=== PATIENT | male | born 1945 | race Caucasian/White ===

== ENCOUNTER 2017-03-18 15:04 | Outpatient (CLI) | payer MEDICARE, BC ==
[2017-03-18] MEDS ORDERED: UNOBMED (15:45)
--- NOTE | 2017-03-18 15:48 | GI Initial Consult Note ---
CarmellaFransisca Mathewsoi N.P. 03/18/17 1548: History of Present Illness General Date patient seen: Mar 18, 2017 Time patient seen: 15:43 Referring physician: FITO GUTIERREZ Reason for Consultation: SBCE Present Illness HPI 71 year old pleasant patient referred by Dr. Gutierrez for small bowel capsule endoscopy. Patient s/p recent EGD/colonoscopy with unremarkable findings. Presents today with mild anemia and iron deficiency. Denies any unintentional weight loss or changes in dietary habits. Home Meds Reported Medications Unable to Obtain Medications (UNABLE TO OBTAIN MEDS) Unknown Strength Ea 03/18/17 Med list reviewed/reconciled: Yes Allergies: Coded Allergies: No Known Allergies (Unverified , 03/18/17) Patient History History Provided By: Patient PMH Narrative DM Anemia Iron deficiency B12 deficiency Past Surgical History: none Pertinent Family History: none Social History: Denies: smoking, alcohol use, drug use, other Review of Systems All Other Systems: negative except mentioned in HPI Physical Exam T 65.2 BP 115/71 P 60 95 RA Sp02 EP Interpretation: reviewed, normal General Appearance: well appearing, no apparent distress, alert Head: normocephalic EENT: PERRL/EOMI, normal ENT inspection Neck: supple Respiratory: normal breath sounds, no respiratory distress Cardiovascular: normal rate Gastrointestinal: normal inspection, non tender, soft, normal bowel sounds, non -distended Rectal: deferred Genitourinary: deferred Musculoskeletal: normal inspection, back normal Neurologic: normal inspection, alert, oriented x3, responsive Psychiatric: normal inspection, judgement/insight normal, memory normal Skin: normal inspection, normal color, no rash, warm/dry, palpation normal, well hydrated Lymphatic: normal inspection, no adenopathy GI: Plan Problems: (1) Anemia (2) DM (diabetes mellitus) (3) Iron deficiency (4) B12 deficiency (5) Encounter for diagnostic endoscopy Plan SBCE scheduled for 03/25/17. - - CLD & Miralax prep instructions given and acknowledged by patient. - NPO @ [place] day prior procedure explained. Seen with Dr. Parmar. Thank you for this patient referral. NAVEED PARMAR 03/19/17 0954: History of Present Illness Present Illness Home Meds Reported Medications Unable to Obtain Medications (UNABLE TO OBTAIN MEDS) Unknown Strength Ea 03/18/17 Allergies: Coded Allergies: No Known Allergies (Unverified , 03/18/17) GI: Plan Plan The patient was seen and examined at bedside and all new and available data was reviewed in the patients chart. I agree with the above findings, impression and plan. (Patient seen earlier today. Signature stamp does not reflect patient encounter time.). - MD [facility]ella [facility]Hon[facility] Luis Mack Mar 18, 2017 15:48 NAVEED PARMAR Mar 19, 2017 09:54
== END 2017-03-18 15:40 | disposition home or self-care (01) ==
LOC: PAN 15:04
DX: D50.9 Iron deficiency anemia, unspecified (principal); E11.9 Type 2 diabetes mellitus without complications; E53.8 Deficiency of other specified B group vitamins
CPT/HCPCS: 99201